=== PATIENT | female | born 1990 | race Hispanic/Latino ===

== ENCOUNTER 2018-01-05 08:48 | Outpatient (CLI) | payer MEDICARE ==
--- NOTE | 2018-01-05 12:59 | Cat Scan Report ---
FINAL REPORT EXAM: CT ABDOMEN PELVIS WO CON HISTORY: LOWER LEFT QUADRANT PAIN TECHNIQUE: CT examination of the ABDOMEN without IV contrast CT examination of the PELVIS without IV contrast PRIORS: None. FINDINGS: Large body habitus limits the examination. Increased soft tissue attenuates the CT x-ray beam and degrades image quality. 3.9 mm nonspecific triangular-shaped nodule is noted in the left lung base within the left major fissure. This may be a pulmonary lymph node. Healed multiple left rib fractures. Degenerative change in the regional skeleton. Normal noncontrast appearance of the liver, gallbladder, adrenals, pancreas, and spleen. Normal caliber abdominal aorta and IVC. Normal-appearing kidneys and visible ureters. Very small fat containing umbilical hernia. No retroperitoneal adenopathy. No mesenteric mass. Normal-appearing stomach and duodenum. No small bowel distention in the abdomen and pelvis. No pelvic free fluid. Normal-appearing urinary bladder, uterus, adnexae, and rectum. Normal-appearing sigmoid colon. No gross ascites, free air, or colonic distention. Normal-appearing cecum, terminal ileum, and appendix. IMPRESSION: Large body habitus limits the examination 3.9 mm triangular nodule in left major fissure may be a pulmonary lymph node Healed multiple lateral left rib fractures No CT evidence of acute pathology in the abdomen and pelvis
== END 2018-01-05 08:49 | disposition home or self-care (01) ==
LOC: CT 08:48
PROVIDERS: ATTEND Internal Medicine
DX: S22.32XD Fracture of one rib, left side, subsequent encounter for fracture with routine healing (principal); K42.9 Umbilical hernia without obstruction or gangrene; R91.1 Solitary pulmonary nodule; R10.32 Left lower quadrant pain; X58.XXXD Exposure to other specified factors, subsequent encounter
CPT/HCPCS: 74176

== ENCOUNTER 2018-03-07 10:00 | Outpatient (CLI) | payer MEDICARE ==
[2018-03-07 10:40] LABS: Chol/HDL Ratio 5.04 %
== END 2018-03-07 10:01 | disposition home or self-care (01) ==
LOC: LAB 10:00
PROVIDERS: ATTEND Internal Medicine
DX: E11.9 Type 2 diabetes mellitus without complications (principal); E66.01 Morbid (severe) obesity due to excess calories; E78.2 Mixed hyperlipidemia; I10 Essential (primary) hypertension; E78.00 Pure hypercholesterolemia, unspecified; Z79.4 Long term (current) use of insulin
CPT/HCPCS: 36415; 80061; 83036

== ENCOUNTER 2018-03-27 10:10 | Outpatient (CLI) | payer MEDICARE ==
--- NOTE | 2018-03-27 12:07 | Cat Scan Report ---
FINAL REPORT EXAM: CT CHEST WO CON HISTORY: PULMONARY NODULE TECHNIQUE: CT of the chest was performed without intravenous contrast. Reconstructions were included in the coronal and sagittal planes. PRIORS: CT of the abdomen and pelvis from 01/05/2018. FINDINGS: Great vessels: The thoracic aorta is normal in caliber. Lungs and airways: No pleural effusion. Previously seen 3.9 millimeter nodule in the region of the left major fissure is no longer seen. No new nodule. No airspace consolidation. The airways are patent. No bronchiectasis. Mediastinum, heart, pericardium: No mediastinal lymphadenopathy. No cardiac chamber enlargement. No pericardial effusion. Thoracic inlet, chest wall, axilla: No chest wall masses. The visualized portions of the thyroid gland demonstrate no focal lesion. No axillary lymphadenopathy. Upper abdomen: The visualized structures demonstrate no specific abnormality. Bones: Degenerative changes are seen in the spine. Multiple old rib fractures are again seen. IMPRESSION: Previously seen nodule along the left major fissure is no longer seen and likely represented an intrapulmonary lymph node. No new nodules are seen.
== END 2018-03-27 10:11 | disposition home or self-care (01) ==
LOC: CT 10:10
PROVIDERS: ATTEND Specialist
DX: R91.1 Solitary pulmonary nodule (principal); I10 Essential (primary) hypertension; E11.9 Type 2 diabetes mellitus without complications; E78.00 Pure hypercholesterolemia, unspecified; E66.9 Obesity, unspecified
CPT/HCPCS: 71250